=== PATIENT | female | born 1985 | race Caucasian/White ===

== ENCOUNTER 2019-06-09 17:14 | Emergency (ER) | payer OTHER ==
[~2019-06-09] VITALS: Ht 162.6 cm; Wt 53.5 kg
[2019-06-09 17:31] VITALS: Ht 162.6 cm; Wt 53.5 kg
[2019-06-09 22:06] VITALS: BP 109/61
== END 2019-06-09 22:06 | disposition home or self-care (01) ==
LOC: ED 17:14
DX: T78.49XA Other allergy, initial encounter (principal); Z98.890 Other specified postprocedural states; Z91.018 Allergy to other foods; X58.XXXA Exposure to other specified factors, initial encounter
CPT/HCPCS: J1100; J1200; J7030